=== PATIENT | male | born 1945 | race African-American/Black ===

== ENCOUNTER 2017-09-05 09:40 | Outpatient (CLI) | payer MEDICARE ==
--- NOTE | 2017-09-05 12:44 | Fluoroscopy Report ---
BARIUM SWALLOW: History: Dysphagia, laryngeal mass. FINDINGS: No relevant comparison. Deglutition is normal. There is no evidence for aspiration. The cervical and thoracic esophagus is normal caliber and mucosal pattern throughout. No mass, stricture or diverticulum is identified. No hiatal hernia. Occasional episodes of mild esophageal spasm were witnessed in the distal esophagus. Magnified images were obtained in the laryngeal region. The base of the tongue, vallecula, epiglottis, piriform sinuses and prevertebral soft tissues are unremarkable on fluoroscopy. There is certainly no large mass visualized. Consider further evaluation with CT neck with contrast if needed. IMPRESSION: No laryngeal mass is visualized on fluoroscopy. Mild esophageal dysmotility.
== END 2017-09-05 09:41 | disposition home or self-care (01) ==
LOC: FLUORO 09:40
PROVIDERS: ATTEND Otolaryngology
DX: K22.4 Dyskinesia of esophagus (principal); J38.7 Other diseases of larynx
CPT/HCPCS: 74220

== ENCOUNTER 2017-09-12 10:02 | Outpatient (CLI) | payer MEDICARE ==
[2017-09-12] MEDS ORDERED: NACL ONE ×3 (10:25→11:43)
[2017-09-12 11:03] LABS: Blood Urea Nitrogen 15 mg/dL (9-20)
--- NOTE | 2017-09-12 13:44 | Cat Scan Report ---
CT scan of neck with IV contrast: History: Laryngeal mass. Findings: Laryngeal and tracheal air column appears normal. No mass is identified. No thickening of the vocal cords. The thyroid cartilage, arytenoid cartilage and the cricoid cartilage appears normal. Normal pre-and paravertebral soft tissue. No evidence of adenopathy. Grossly vascular structures appears normal. Normal submandibular salivary glands and parotid glands. Impression: Essentially negative CT scan of neck.
== END 2017-09-12 10:03 | disposition home or self-care (01) ==
LOC: CT 10:02
PROVIDERS: ATTEND Otolaryngology
DX: J38.7 Other diseases of larynx (principal)
CPT/HCPCS: 36415; 70492; 82565; 84520; Q9967

== ENCOUNTER 2020-12-07 08:58 | Outpatient (CLI) | payer MEDICARE ==
--- NOTE | 2020-12-07 10:29 | Cat Scan Report ---
CT abdomen pelvis con INDICATION: ELEVATED PROSTATE. TECHNIQUE: All CT scans at this location are performed using the following dose modulation technique: Automated exposure control. CONTRAST: None. COMPARISON: None available. CT ABDOMEN: The parenchymal organs are unremarkable in appearance. Negative for abdominal mass, fluid or inflammation. The bowel is not dilated or thickened. The aorta contains mild atherosclerotic calcification. CT PELVIS: Negative for mass, adenopathy or inflammation. The prostate gland contains moderate calcif ication. Trace pelvic free fluid is present. A few small scattered scattered sclerotic foci are seen at the lumbar spine and sacrum. A representat blanche area is seen at the left sacrum measuring 5 mm (series 2, image 122). IMPRESSION: 1. Negative for soft tissue abnormality. 2. Small sclerotic bone lesions are indeterminate. Signer Name: Adam Dunlap MD Signed: 12/07/2020 10:25 AM Workstation Name: [id number]
--- NOTE | 2020-12-07 13:03 | Nuclear Medicine Report ---
NUCLEAR MEDICINE BONE SCAN, WHOLE BODY INDICATION: Elevated PSA, prostate cancer, evaluate for bony metastasis. TECHNIQUE: 25.5 mCi of Tc-99m MDP were injected IV. Whole body images were obtained. COMPARISON: CT abdomen pelvis performed the same day.. FINDINGS: Skeletal Structures: Fairly symmetric, likely degenerative uptake is present involving the thoracic spine. Skeletal Lesions: None. Soft Tissues: Normal. Kidneys: Normal, symmetric activity. Additional Findings: None. IMPRESSION: No significant scintigraphic abnormality. Signer Name: Surya Fitzpatrick Jr, MD Signed: 12/07/2020 12:59 PM Workstation Name: [id number]
== END 2020-12-07 08:59 | disposition home or self-care (01) ==
LOC: NM 08:58
PROVIDERS: ATTEND Urology
DX: N42.89 Other specified disorders of prostate (principal); I70.0 Atherosclerosis of aorta; M89.9 Disorder of bone, unspecified; R97.20 Elevated prostate specific antigen [PSA]; C61 Malignant neoplasm of prostate
CPT/HCPCS: 74176; 78306; A9503